=== PATIENT | male | born 1985 | race Caucasian/White ===

== ENCOUNTER → 2017-02-25 | Outpatient (CLI) | payer BC | LOC: MW.CHENT 14:31 | PROVIDERS: ATTEND Otolaryngology | DX: J34.3 Hypertrophy of nasal turbinates (principal) | CPT/HCPCS: 36415; 86003 ==

== ENCOUNTER 2017-07-09 07:50 | Day surgery (SDC) | payer BC ==
[~2017-07-09 07:50] MED LIST: Aloe Vera/Sodium Chloride Gel 14.1 GM Tube ONE; Lidocaine 1% 20 ML MDV ONE; Lidocaine 2% with EPINEPHrine 1:100,000 20 ML MDV ONE; Oxymetazoline 0.05% Nasal Spray 15 ML Bottle ONE
[2017-07-09] MEDS ORDERED: Lactated Ringers 1,000 ML IV SCH (08:15)
--- NOTE | 2017-07-09 09:13 | PCM.PREANE ---
Preanesthetic Assessment - Anesthesia/Transfusion/Family Hx Anesthesia History: Prior Anesthesia Without Reaction Family History of Anesthesia Reaction: No Transfusion History: No Prior Transfusion(s) - Review of Systems General: No Symptoms Pulmonary: No Symptoms Cardiovascular: No Symptoms Gastrointestinal: No Symptoms Neurological: No Symptoms Other: Reports: None - Physical Assessment NPO Status Date: 07/08/17 NPO Status Time: 21:00 O2 Sat by Pulse Oximetry: 100 Respiratory Rate: 16 Vital Signs: Last Vital Signs Temp 36.4 C 07/09/17 08:33 Pulse 59 L 07/09/17 08:33 Resp 16 07/09/17 08:33 BP 141/82 H 07/09/17 08:33 Pulse Ox 100 07/09/17 08:33 Height: 1.7 m Weight: 81.647 kg ASA Class: 2 Mental Status: Alert & Oriented x3 Airway Class: Mallampati = 1 Dentition: Reports: Normal Dentition ROM/Head Extension: Full Lungs: Clear to Auscultation, Normal Respiratory Effort Cardiovascular: Regular Rate, Regular Rhythm - Allergies Allergies/Adverse Reactions: Allergies Allergy/AdvReac Type Severity Reaction Status Date / Time No Known Allergies Allergy Verified 07/07/17 11:33 - Anesthesia Plan Pre-Op Medication Ordered: None - Acknowledgements Anesthesia Type Planned: General Anesthesia Pt an Appropriate Candidate for the Planned Anesthesia: Yes Alternatives and Risks of Anesthesia Discussed w Pt/Guardian: Yes Pt/Guardian Understands and Agrees with Anesthesia Plan: Yes PreAnesthesia Questionnaire - Past Surgical History Head Surgeries/Procedures: Reports: None HEENT Surgical History: Reports: Oral Surgery, Tonsillectomy - SUBSTANCE USE Smoking Status *Q: Never Smoker Recreational Drug Use History: No - HOME MEDS Home Medications: Home Meds . [No Known Home Meds] 07/07/17 [History] - CURRENT (IN HOUSE) MEDS Current Meds: Current Medications Lactated Ringer's (Ringers, Lactated) 1,000 mls @ 125 mls/hr IV ASDIRECTED [facility] Last Admin: 07/09/17 08:40 Dose: 125 mls/hr Discontinued Medications Lidocaine HCl (Xylocaine 1%) Confirm Administered Dose 20 ml .ROUTE .STK-MED ONE Stop: 07/09/17 07:37 Lidocaine/Epinephrine (Xylocaine 2% With Epinephrine 1:100,000) Confirm Administered Dose 20 ml .ROUTE .STK-MED ONE Stop: 07/09/17 07:38 Oxymetazoline HCl (Afrin Original 0.05% Nasal [place]) Confirm Administered Dose 15 ml .ROUTE .STK-MED ONE Stop: 07/09/17 07:38 Sodium Chloride (Devol Saline Nasal Gel) Confirm Administered Dose 14.1 gm .ROUTE .STK-MED ONE Stop: 07/09/17 07:40
[2017-07-09] MEDS ORDERED: Remifentanil 1 MG Vial ONE (10:55)
[2017-07-09] MEDS ORDERED: Propofol 200 MG/20 ML SDV ONE ×4 (11:00→12:39)
[2017-07-09] MEDS ORDERED: Lidocaine 2% 5 ML SDV ONE (11:03)
[2017-07-09] MEDS ORDERED: Ondansetron 4 MG/2 ML SDV ONE (11:04)
[2017-07-09] MEDS ORDERED: HYDROmorphone 2 MG/ML Syringe ONE (11:04)
--- NOTE | 2017-07-09 11:05 | PCM.OPNOTE ---
- General Post-Op/Procedure Note Condition: Good Free Text/Narrative:: Pre operative diagnosis: Nasal obstruction, deviated nasal septum, albert inferior turbinate hypertrophy, snoring, rhinitis Post operative diagnosis: As above Procedure: Coblation reducion of bilateral inferior turbinates [ CPT 79618 (50)] , Nasal septoplasty [ 97007 ] Surgeon: Yani Kang MD Anesthesia: GA Anesthesiologist: Dr Calderon Date of procedure: 07/09/2017 Indications: Nasal obstruction, deviated nasal septum, albert inferior turbinate hypertrophy, snoring, rhinitis Findings: Bilateral inferior turbinate hypertrophy. L deviation of nasal septum ; Right - cartilage spur along the floor; L vomerine spur Operation details: An informed consent was obtained. A time out was performed and the patient was brought back to the operating room. Gen. anesthesia was administered with an endotracheal tube. A pharyngeal pack was placed. A 0 degree rigid nasal endoscope was used to examine bilateral nasal cavities and photo documentation was obtained. The left inferior turbinate was addressed first. 1% lidocaine was injected into the inferior turbinate - 3 mls were used. The nasal cavity was packed with Afrin soaked pledget. After adequte period of decongestion the pledget was removed. A reflex 45 coblation wand with tip dipped in AYR Gel was used at setting of 6 :2 for Coblation and coagulation respectively. The point of entry was coagulated and wand was inserted till the third marking. Three swanson were created in the single channel. The inferior turbinate was visibly shrunk. Similar procedure was repeated on the right side - 3ml of 1% lidocaine was used; there was visible reduction in size of turbinate subsequent to coblation. Bilateral nasal cavities were then packed with oxymetazoline 0.05% soaked cottonoid pledgets. After an appropriate period of decongestion the pledgets were removed. Nasal septum was infiltrated with 2% lidocaine 1: 100, 000 epinephrine in a standard fashion-a total of 3.5 mls was used. The pledgets were then removed. A Left Hemitransfixation incision was performed. A left sided mucoperichondrial flap was elevated-dissection was commenced with 2 mm osteotome and further carried out with combination of donis and Lydia elevators. Posteriorly the flap was continued as a muco periosteal flap. A posterior chondrotomy was performed. Right-sided mucoperiosteal flap was elevated. A ma scissor was used and the inferior part of perpendicular plate of the ethmoid was removed. Carefully, the flap was elevated off the right sided cartilaginous spur along the floor by freeing the cartilage from the maxillary crest. There was a tear in the flap on right along the floor. There was a small tear in the flap posteriorly on the left side - this was non overlapping with the one on right.The chondro vomerine spur was removed. Subsequent to this, the septum was positioned towards the midline. A piece of cartilage was re inserted and sutured in place at the site of the right flap tear and secured in place with 4.0 plain gut. Flap incision was sutured with 4-0 plain gut. Mattress sutures were also performed. Bilateral nasal Ortiz splints placed and sutured with 2.0 Nylon to columella. Hemostasis was ensured. Pharyngeal pack was removed. Specimens: none IV fluids: 1900 ml Blood loss: 15 ml Blood products: nil Disposition: PACU for recovery Follow up: 1 week for rermoval of splints
[2017-07-09] MEDS ORDERED: Midazolam 1 MG/ML 2 ML SDV ONE (11:06)
[2017-07-09] MEDS ORDERED: Mineral Oil/Petrolatum Ophth Oint 3.5 GM Tube ONE (11:07)
[2017-07-09] MEDS ORDERED: EPINEPHrine 1 MG/ML SDV ONE (11:13)
[2017-07-09] MEDS ORDERED: Rocuronium 10 MG/ML 10 ML Syringe ONE (12:16)
[2017-07-09] MEDS ORDERED: Neostigmine Methylsulfate 1 MG/ML 5 ML Syringe ONE (12:16)
[2017-07-09] MEDS ORDERED: fentaNYL 100 MCG/2 ML SDV IVPUSH PRN (12:46)
[2017-07-09] MEDS ORDERED: HYDROmorphone 2 MG/ML Syringe IVPUSH ONE (12:46)
[2017-07-09] MEDS ORDERED: Acetaminophen 325 MG Tab PO PRN (13:26)
[2017-07-09] MEDS ORDERED: oxyCODONE 5 MG Tab PO PRN (13:27)
--- NOTE | 2017-07-09 14:44 | PCM.POSTAN ---
POST ANESTHESIA ASSESSMENT - MENTAL STATUS Mental Status: Alert - RESPIRATORY Respiratory Status: Respiratory Rate WNL, Airway Patent, O2 Saturation Stable - CARDIOVASCULAR CV Status: Pulse Rate WNL, Blood Pressure Stable - GASTROINTESTINAL GI Status: No Symptoms - PAIN Pain Score: 2 - POST OP HYDRATION Hydration Status: Adequate & Stable
--- NOTE | 2017-07-09 15:04 | PCM48HPAN ---
Post Anesthesia Note - EVALUATION WITHIN 48HRS OF ANESTHETIC Vital Signs in Normal Range: Yes Patient Participated in Evaluation: Yes Respiratory Function Stable: Yes Airway Patent: Yes Cardiovascular Function Stable: Yes Hydration Status Stable: Yes Pain Control Satisfactory: Yes Nausea and Vomiting Control Satisfactory: Yes Mental Status Recovered: Yes - COMMENTS/OBSERVATIONS Free Text/Narrative:: No anesthesia complications at this time.
[2017-07-09 16:01] VITALS: BP 126/77
== END 2017-07-09 15:43 | disposition home or self-care (01) ==
LOC: MW.SDS 07:50
PROVIDERS: ATTEND Otolaryngology
DX: J34.3 Hypertrophy of nasal turbinates (principal); J34.2 Deviated nasal septum; J34.89 Other specified disorders of nose and nasal sinuses; Z98.890 Other specified postprocedural states
CPT/HCPCS: 30520; 30802; A9270; J1170; J2250; J2405; J7120; 00160; J2704